=== PATIENT | female | born 1945 | race Caucasian/White ===

== ENCOUNTER 2018-05-28 11:05 | Inpatient (IN) | payer MEDICARE, BC ==
[2018-05-28] VITALS (10 sets, daily range): BP systolic 169–184; BP diastolic 85–97
[~2018-05-28] VITALS: Ht 165.1 cm; Wt 73.9 kg
[2018-05-28] MEDS ORDERED: POTA10TA11 PO (12:04)
[2018-05-28] MEDS ORDERED: AMLO-150 PO (12:04)
[2018-05-28] MEDS ORDERED: MORPHINE SULFATE 4 MG/ML, 1ML IV PRN (13:00)
[2018-05-28] MEDS ORDERED: ONDANSETRON 4 MG TABLET PO PRN (13:00)
[2018-05-28] MEDS ORDERED: OXYcodone/APAP 7.5/325MG TABLET PO PRN (13:00)
[2018-05-28] MEDS: FUROSEMIDE 20 MG TABLET PO SCH ×2 (13:32→19:35)
[2018-05-28] MEDS: POTASSIUM CHLORIDE 20 MEQ TAB.ER.PRT PO SCH ×2 (13:32→19:34)
[2018-05-28] MEDS ORDERED: LIDOCAINE/PRILOCAINE CRM W/TEG 5GM TP ONE ×2 (14:30)
[2018-05-28] MEDS: AMLODIPINE 5 MG TABLET PO SCH (14:53)
[2018-05-28] MEDS: SODIUM CHLORIDE 0.45% 1,000 ML IV SCH (14:54)
[2018-05-28 16:48] LABS: ALBUMIN 2.8 g/dL (3.4-5.0); ANION GAP 8 mmol/L (5-15); CALCIUM 7.7 mg/dL (8.5-10.1); CHLORIDE 105 mmol/L (98-107)
[2018-05-28 16:52] LABS: ALANINE AMINOTRANSFERASE 193 U/L (12-78); ALKALINE PHOSPHATASE 85 U/L (45-117); BILIRUBIN,TOTAL 0.4 mg/dL (0.2-1.0); CREATININE 1.61 mg/dL (0.55-1.02); TOTAL PROTEIN 5.3 g/dL (6.4-8.2)
[2018-05-28 17:02] LABS: MEAN CORPUSCULAR HGB CONC 34.6 g/dL (32.4-35.8); MEAN CORPUSCULAR VOLUME 92.3 fL (80-100); MEAN PLATELET VOLUME 7.9 fL (7.4-10.4); RED CELL DISTRIBUTION WIDTH 13.5 % (9.6-15.2)
[2018-05-28 17:06] LABS: PLATELET COUNT 7 x10^3/uL (130-400)
[2018-05-28 17:11] LABS: MD YES
[2018-05-28 17:17] LABS: EOS#(MANUAL) 0.03 x10^3/uL (0.0-0.4); EOS% (MANUAL) 2 % (1-7); LYMPH#(MANUAL) 0.98 x10^3/uL (1-3.4); LYMPHS% (MANUAL) 75 % (22-44); MONOS#(MANUAL) 0.01 x10^3/uL (0.3-2.7); MONOS% (MANUAL) 1 % (2-9); SEG#(MANUAL) 0.29 x10^3/uL (1.8-6.8); SEGS% (MANUAL) 22 % (42-75)
[2018-05-28 17:18] LABS: <PLATELET ESTIMATE> DECREASED; <PLT MORPHOLOGY> NORMAL PLT MORPH; <RBC MORPHOLOGY> NORMAL
[2018-05-28] MEDS: TBO-FILGRASTIM 480 MCG/0.8 ML SQ SCH (19:35)
[2018-05-28] MEDS ORDERED: hydrALAzine 20 MG/ML, 1ML IV ONE (22:00)
[2018-05-29] VITALS (8 sets, daily range): BP systolic 152–166; BP diastolic 74–103
[2018-05-29 04:41] LABS: ALANINE AMINOTRANSFERASE 163 U/L (12-78); ALBUMIN 2.9 g/dL (3.4-5.0); ANION GAP 8 mmol/L (5-15); CALCIUM 7.9 mg/dL (8.5-10.1); CHLORIDE 107 mmol/L (98-107); CREATININE 1.69 mg/dL (0.55-1.02); MEAN CORPUSCULAR HEMOGLOBIN 32.1 pg (27.0-34.8); MEAN CORPUSCULAR HGB CONC 34.8 g/dL (32.4-35.8); MEAN CORPUSCULAR VOLUME 92.3 fL (80-100); RED BLOOD COUNT 2.55 x10^6/uL (3.82-5.3); RED CELL DISTRIBUTION WIDTH 13.7 % (9.6-15.2)
[2018-05-29 04:43] LABS: ALKALINE PHOSPHATASE 74 U/L (45-117); BILIRUBIN,TOTAL 0.7 mg/dL (0.2-1.0); TOTAL PROTEIN 5.5 g/dL (6.4-8.2)
[2018-05-29 05:56] LABS: MD YES
[2018-05-29 06:01] LABS: MEAN PLATELET VOLUME 7.4 fL (7.4-10.4)
[2018-05-29 06:04] LABS: LYMPH#(MANUAL) 0.94 x10^3/uL (1-3.4); LYMPHS% (MANUAL) 47 % (22-44); MONOS#(MANUAL) 0.06 x10^3/uL (0.3-2.7); MONOS% (MANUAL) 3 % (2-9); PLATELET COUNT 48 x10^3/uL (130-400); SEGS% (MANUAL) 50 % (42-75)
[2018-05-29 06:05] LABS: <PLATELET ESTIMATE> DECREASED; <PLT MORPHOLOGY> NORMAL PLT MORPH
[2018-05-29] MEDS: SODIUM CHLORIDE 0.45% 1,000 ML IV SCH ×2 (08:54→21:20)
[2018-05-29] MEDS: POTASSIUM CHLORIDE 20 MEQ TAB.ER.PRT PO SCH ×2 (08:54→19:52)
[2018-05-29] MEDS: FUROSEMIDE 20 MG TABLET PO SCH ×2 (08:54→19:52)
[2018-05-29] MEDS ORDERED: LABETALOL 5MG/ML, 20ML IVPush PRN (14:30)
[2018-05-29] MEDS ORDERED: hydrALAzine 20 MG/ML, 1ML IV PRN (17:00)
[2018-05-29] MEDS: AMLODIPINE 5 MG TABLET PO SCH (19:52)
[2018-05-29] MEDS: TBO-FILGRASTIM 480 MCG/0.8 ML SQ SCH (19:52)
[2018-05-30] VITALS (10 sets, daily range): BP systolic 154–185; BP diastolic 71–97
[2018-05-30 04:35] LABS: ALANINE AMINOTRANSFERASE 134 U/L (12-78); ALBUMIN 2.8 g/dL (3.4-5.0); ANION GAP 6 mmol/L (5-15); CALCIUM 8.2 mg/dL (8.5-10.1); CHLORIDE 107 mmol/L (98-107); CREATININE 1.57 mg/dL (0.55-1.02)
[2018-05-30 04:38] LABS: ALKALINE PHOSPHATASE 84 U/L (45-117); BILIRUBIN,TOTAL 0.6 mg/dL (0.2-1.0); TOTAL PROTEIN 5.5 g/dL (6.4-8.2)
[2018-05-30 05:00] LABS: MEAN CORPUSCULAR HEMOGLOBIN 31.1 pg (27.0-34.8); MEAN CORPUSCULAR HGB CONC 33.5 g/dL (32.4-35.8); MEAN CORPUSCULAR VOLUME 92.8 fL (80-100); RED BLOOD COUNT 2.49 x10^6/uL (3.82-5.3); RED CELL DISTRIBUTION WIDTH 13.9 % (9.6-15.2)
[2018-05-30 05:45] LABS: MD YES
[2018-05-30 05:47] LABS: MEAN PLATELET VOLUME 8.6 fL (7.4-10.4)
[2018-05-30 05:48] LABS: BAND#(MANUAL) 0.23 x10^3/uL; BANDS%(MANUAL) 9 % (0-7); EOS#(MANUAL) 0.03 x10^3/uL (0.0-0.4); EOS% (MANUAL) 1 % (1-7); LYMPHS% (MANUAL) 40 % (22-44); MONOS#(MANUAL) 0.05 x10^3/uL (0.3-2.7); MONOS% (MANUAL) 2 % (2-9); SEGS% (MANUAL) 48 % (42-75)
[2018-05-30 05:49] LABS: <PLATELET ESTIMATE> DECREASED; PLATELET COUNT 26 x10^3/uL (130-400); POLYCHROMASIA 1+
[2018-05-30 05:50] LABS: <PLT MORPHOLOGY> NORMAL PLT MORPH
[2018-05-30] MEDS: POTASSIUM CHLORIDE 20 MEQ TAB.ER.PRT PO SCH ×2 (09:00→21:32)
[2018-05-30] MEDS ORDERED: AMLODIPINE 5 MG TABLET ONE (10:08)
[2018-05-30] MEDS: FUROSEMIDE 20 MG TABLET PO SCH ×2 (10:21→21:31)
[2018-05-30] MEDS: AMLODIPINE 5 MG TABLET PO SCH (21:32)
[2018-05-30] MEDS: TBO-FILGRASTIM 480 MCG/0.8 ML SQ SCH (21:33)
[2018-05-31 01:12] VITALS: BP 152/90
[2018-05-31 04:29] LABS: MEAN CORPUSCULAR HEMOGLOBIN 31.2 pg (27.0-34.8); MEAN CORPUSCULAR HGB CONC 33.8 g/dL (32.4-35.8); MEAN CORPUSCULAR VOLUME 92.4 fL (80-100); MEAN PLATELET VOLUME 9.4 fL (7.4-10.4); RED BLOOD COUNT 2.77 x10^6/uL (3.82-5.3); RED CELL DISTRIBUTION WIDTH 13.5 % (9.6-15.2)
[2018-05-31 04:30] LABS: ALANINE AMINOTRANSFERASE 112 U/L (12-78); ALBUMIN 2.9 g/dL (3.4-5.0); ANION GAP 7 mmol/L (5-15); CHLORIDE 108 mmol/L (98-107); CREATININE 1.61 mg/dL (0.55-1.02); PLATELET COUNT 23 x10^3/uL (130-400)
[2018-05-31 04:32] LABS: ALKALINE PHOSPHATASE 93 U/L (45-117); BILIRUBIN,TOTAL 0.6 mg/dL (0.2-1.0); TOTAL PROTEIN 5.6 g/dL (6.4-8.2)
[2018-05-31 04:59] LABS: MD YES
[2018-05-31 05:06] LABS: BAND#(MANUAL) 0.12 x10^3/uL; BANDS%(MANUAL) 5 % (0-7); EOS#(MANUAL) 0.02 x10^3/uL (0.0-0.4); EOS% (MANUAL) 1 % (1-7); LYMPH#(MANUAL) 0.98 x10^3/uL (1-3.4); LYMPHS% (MANUAL) 41 % (22-44); MONOS#(MANUAL) 0.12 x10^3/uL (0.3-2.7); MONOS% (MANUAL) 5 % (2-9); MYELOCYTES# (MANUAL) 0.02 x10^3/uL (0-0); MYELOCYTES% (MANUAL) 1 % (0-0); NRBC % (MANUAL) 1 % (0-1); POLYCHROMASIA 1+; REACTIVE LYMPHS # (MANUAL) 0.02 x10^3/uL (0-0); REACTIVE LYMPHS % (MANUAL) 1 % (0-0); SEGS% (MANUAL) 46 % (42-75)
[2018-05-31 05:07] LABS: <PLATELET ESTIMATE> DECREASED; <PLT MORPHOLOGY> NORMAL PLT MORPH
[2018-05-31 07:50] VITALS: BP 157/81
[2018-05-31] MEDS: FUROSEMIDE 20 MG TABLET PO SCH ×2 (09:43→20:59)
[2018-05-31] MEDS: POTASSIUM CHLORIDE 20 MEQ TAB.ER.PRT PO SCH ×2 (09:43→20:58)
[2018-05-31] MEDS: AMLODIPINE 5 MG TABLET PO SCH ×2 (09:43→20:58)
[2018-05-31 14:00] VITALS: BP 167/81
[2018-05-31 18:25] VITALS: BP 157/79
[2018-05-31] MEDS: TBO-FILGRASTIM 480 MCG/0.8 ML SQ SCH (20:58)
[2018-06-01 02:44] VITALS: BP 149/84
[2018-06-01 04:43] LABS: MEAN CORPUSCULAR HGB CONC 34.4 g/dL (32.4-35.8); MEAN CORPUSCULAR VOLUME 92.8 fL (80-100); MEAN PLATELET VOLUME 7.7 fL (7.4-10.4); RED BLOOD COUNT 2.83 x10^6/uL (3.82-5.3); RED CELL DISTRIBUTION WIDTH 13.4 % (9.6-15.2)
[2018-06-01 04:49] LABS: ANION GAP 7 mmol/L (5-15); CHLORIDE 107 mmol/L (98-107); CREATININE 1.91 mg/dL (0.55-1.02)
[2018-06-01 05:00] LABS: PLATELET COUNT 47 x10^3/uL (130-400)
[2018-06-01 05:28] LABS: MD YES
[2018-06-01 05:31] LABS: <PLATELET ESTIMATE> DECREASED; <PLT MORPHOLOGY> NORMAL PLT MORPH; BAND#(MANUAL) 0.11 x10^3/uL; BANDS%(MANUAL) 4 % (0-7); LYMPHS% (MANUAL) 63 % (22-44); MONOS% (MANUAL) 11 % (2-9); POLYCHROMASIA 1+; SEG#(MANUAL) 0.59 x10^3/uL (1.8-6.8); SEGS% (MANUAL) 22 % (42-75)
[2018-06-01 09:22] VITALS: BP 150/75
[2018-06-01] MEDS ORDERED: AMLODIPINE 5 MG TABLET ONE (10:41)
[2018-06-01] MEDS: FUROSEMIDE 20 MG TABLET PO SCH ×2 (10:44→20:59)
[2018-06-01] MEDS: POTASSIUM CHLORIDE 20 MEQ TAB.ER.PRT PO SCH ×2 (10:44→20:59)
[2018-06-01] MEDS ORDERED: AMLODIPINE 5 MG TABLET PO ONE (12:30)
[2018-06-01 13:13] VITALS: BP 133/72
[2018-06-01 20:17] VITALS: BP_SYST 160; BP_SYST 165; BP_DIAS 83; BP_DIAS 84
[2018-06-01] MEDS: AMLODIPINE 5 MG TABLET PO SCH (20:59)
[2018-06-01] MEDS: TBO-FILGRASTIM 480 MCG/0.8 ML SQ SCH (21:29)
[2018-06-01 21:36] VITALS: BP 153/88
[2018-06-02 01:59] VITALS: BP 131/77
[2018-06-02 05:56] LABS: MEAN CORPUSCULAR HEMOGLOBIN 32.2 pg (27.0-34.8); MEAN CORPUSCULAR HGB CONC 34.2 g/dL (32.4-35.8); MEAN CORPUSCULAR VOLUME 94.3 fL (80-100); MEAN PLATELET VOLUME 7.8 fL (7.4-10.4); PLATELET COUNT 77 x10^3/uL (130-400); RED BLOOD COUNT 2.83 x10^6/uL (3.82-5.3); RED CELL DISTRIBUTION WIDTH 13.9 % (9.6-15.2)
[2018-06-02 06:07] LABS: ALANINE AMINOTRANSFERASE 87 U/L (12-78); ALBUMIN 2.9 g/dL (3.4-5.0); ANION GAP 7 mmol/L (5-15); CALCIUM 8.6 mg/dL (8.5-10.1); CHLORIDE 106 mmol/L (98-107); CREATININE 1.91 mg/dL (0.55-1.02)
[2018-06-02 06:09] LABS: ALKALINE PHOSPHATASE 110 U/L (45-117); BILIRUBIN,TOTAL 0.4 mg/dL (0.2-1.0); TOTAL PROTEIN 5.9 g/dL (6.4-8.2)
[2018-06-02 06:12] LABS: MD YES
[2018-06-02 06:44] LABS: BAND#(MANUAL) 1.23 x10^3/uL; BANDS%(MANUAL) 16 % (0-7); BASOS#(MANUAL) 0.08 x10^3/uL (0-0.1); BASOS% (MANUAL) 1 % (0-1); EOS#(MANUAL) 0.08 x10^3/uL (0.0-0.4); EOS% (MANUAL) 1 % (1-7); LYMPHS% (MANUAL) 26 % (22-44); METAMYELOCYTES# (MANUAL) 0.08 x10^3/uL (0-0); METAMYELOCYTES% (MANUAL) 1 % (0-1); MONOS% (MANUAL) 13 % (2-9); MYELOCYTES# (MANUAL) 0.15 x10^3/uL (0-0); MYELOCYTES% (MANUAL) 2 % (0-0); OTHER CELLS # (MANUAL) 0.15 x10^3/uL (0-0); OTHER CELLS % (MANUAL) 2 % (0-0); SEG#(MANUAL) 2.93 x10^3/uL (1.8-6.8); SEGS% (MANUAL) 38 % (42-75)
[2018-06-02 06:45] LABS: POLYCHROMASIA 1+
[2018-06-02 06:46] LABS: <PLATELET ESTIMATE> DECREASED; <PLT MORPHOLOGY> NORMAL PLT MORPH
[2018-06-02 07:14] VITALS: BP 142/80
[2018-06-02] MEDS: AMLODIPINE 5 MG TABLET PO SCH (08:11)
[2018-06-02] MEDS: FUROSEMIDE 20 MG TABLET PO SCH (08:11)
[2018-06-02] MEDS: POTASSIUM CHLORIDE 20 MEQ TAB.ER.PRT PO SCH (08:11)
[2018-06-02 14:59] VITALS: BP 166/69
== END 2018-06-02 18:43 | disposition home health service (06) | DRG 808 ==
LOC: ORIP 11:23 → 3NW 11:41
PROVIDERS: ADMIT Specialist; ATTEND Specialist
PROC: 30233R1 Transfusion of Nonautologous Platelets into Peripheral Vein, Percutaneous Approach (ICD-10-PCS; 2018-05-28)
PROC: 30233N1 Transfusion of Nonautologous Red Blood Cells into Peripheral Vein, Percutaneous Approach (ICD-10-PCS; principal; 2018-05-30)
DX: D61.810 Antineoplastic chemotherapy induced pancytopenia (principal); N17.0 Acute kidney failure with tubular necrosis; C56.2 Malignant neoplasm of left ovary; C56.1 Malignant neoplasm of right ovary; D64.81 Anemia due to antineoplastic chemotherapy; D69.59 Other secondary thrombocytopenia; D72.810 Lymphocytopenia; E87.6 Hypokalemia; G62.9 Polyneuropathy, unspecified; G89.3 Neoplasm related pain (acute) (chronic); I10 Essential (primary) hypertension; R04.0 Epistaxis; T45.1X5A Adverse effect of antineoplastic and immunosuppressive drugs, initial encounter; Y92.89 Other specified places as the place of occurrence of the external cause; Z85.43 Personal history of malignant neoplasm of ovary; Z90.722 Acquired absence of ovaries, bilateral
CPT/HCPCS: 36415; 80048; 80053; 85025; 86304; 86850; 86900; 86923; G0378; J0360; J1447; P9016; P9035

== ENCOUNTER 2018-07-10 06:02 | Day surgery (SDC) | payer MEDICARE, BC ==
[~2018-07-10] VITALS: Ht 165.1 cm; Wt 71.0 kg
[~2018-07-10 06:02] MED LIST: AMLO-150 PO; POTA10TA11 PO
[2018-07-10] MEDS ORDERED: SODIUM CHLORIDE 0.9% 1,000 ML IV SCH (06:49)
[2018-07-10 06:50] VITALS: BP 149/87
[2018-07-10] MEDS ORDERED: LIDOCAINE-MPF 1%, 5ML ONE (07:09)
[2018-07-10 07:20] LABS: BASOPHILS # (AUTO) 0.03 x10^3/uL (0-0.1); BASOPHILS % (AUTO) 1 % (0-1); EOSINOPHILS # (AUTO) 0.17 x10^3/uL (0-0.4); EOSINOPHILS % (AUTO) 3 % (1-7); LYMPHOCYTES # (AUTO) 1.34 x10^3/uL (1-3.4); LYMPHOCYTES % (AUTO) 20 % (22-44); MD NO; MEAN CORPUSCULAR HEMOGLOBIN 32.7 pg (27.0-34.8); MEAN CORPUSCULAR HGB CONC 33.3 g/dL (32.4-35.8); MEAN CORPUSCULAR VOLUME 98.3 fL (80-100); MEAN PLATELET VOLUME 7.5 fL (7.4-10.4); MONOCYTES # (AUTO) 0.55 x10^3/uL (0.2-0.8); MONOCYTES % (AUTO) 8 % (2-9); NEUTROPHILS # (AUTO) 4.72 x10^3/uL (1.8-6.8); NEUTROPHILS % (AUTO) 69 % (42-75); PLATELET COUNT 179 x10^3/uL (130-400); RED CELL DISTRIBUTION WIDTH 16.9 % (9.6-15.2)
[2018-07-10] MEDS ORDERED: LIDOCAINE-MPF 1%, 2ML ONE (07:32)
[2018-07-10] MEDS ORDERED: MIDAZOLAM 1 MG/ML, 5ML ONE (07:56)
[2018-07-10] MEDS ORDERED: FENTANYL PF 100 MCG/2ML ONE ×2 (07:56)
[2018-07-10] MEDS ORDERED: FLUMAZENIL 0.1 MG/1 ML, 5ML ONE (07:56)
[2018-07-10] MEDS ORDERED: NALOXONE 1 MG/ML, 2ML ONE (07:57)
== END 2018-07-10 10:45 | disposition home or self-care (01) ==
LOC: OUT 06:02
PROVIDERS: ATTEND Specialist
DX: N13.30 Unspecified hydronephrosis (principal); C56.1 Malignant neoplasm of right ovary; C79.19 Secondary malignant neoplasm of other urinary organs; K44.9 Diaphragmatic hernia without obstruction or gangrene; I10 Essential (primary) hypertension; Z98.890 Other specified postprocedural states; Z90.710 Acquired absence of both cervix and uterus
CPT/HCPCS: 36415; 50432; 85025; 99156; 99157; C1729; C1769; C1894; J2250; J3010; J2310

== ENCOUNTER 2019-02-19 11:04 | Outpatient (CLI) | payer MEDICARE, BC | END 2019-02-19 23:59 | disposition home or self-care (01) | LOC: RAD 11:04 | PROVIDERS: ATTEND Specialist | DX: Z02.9 Encounter for administrative examinations, unspecified (principal) ==

== ENCOUNTER → 2019-05-15 | Outpatient (CLI) | payer MEDICARE, BC | END | disposition home or self-care (01) | LOC: ROC 08:58 | PROVIDERS: ATTEND Radiology Radiation Oncology | DX: C79.60 Secondary malignant neoplasm of unspecified ovary (principal); C41.0 Malignant neoplasm of bones of skull and face | CPT/HCPCS: G0463 ==

== ENCOUNTER → 2019-05-25 | Outpatient (CLI) | payer MEDICARE, BC ==
[~2019-05-25] MED LIST changes: +GADOTERATE 7.5 MMOL/15 ML SYR ONE
== END | disposition home or self-care (01) ==
LOC: CFH 13:00
PROVIDERS: ATTEND Radiology Radiation Oncology
DX: C79.51 Secondary malignant neoplasm of bone (principal); C80.1 Malignant (primary) neoplasm, unspecified; Z85.43 Personal history of malignant neoplasm of ovary
CPT/HCPCS: 70553; A9575